=== PATIENT | female | born 1955 | race African-American/Black ===

== ENCOUNTER → 2016-10-28 | Outpatient (CLI) | payer OTHER ==
[~2016-10-28] MED LIST: B COMPLEX/FOLIC1 TAB PO; DIOVAN PO; ESTRADIOL1 EACH TD; FAMOTIDINE20 M1 PO; FUROSEMIDE40 MG PO; LOSARTAN POTASS50 MG PO; METFORMIN HCL500 M1 PO; OMEGA 3; POSTURE600 MG PO; PRAVASTATIN SOD20 MG PO; PREVACID PO; PREVASTATIN
--- NOTE | ~2016-10-28 | CR184 ---
[facility] A Service of [facility] RADIOLOGY TEXT RESULTS PATIENT: LIANET HOWE LOCATION: [facility] : 59 UNIT #: [id number] AGE: [address]: HUMAIRA POWERS MD SEX: F ORDER DR: [id number] [facility] [address] [place], [place] [address] [id number] O MR#: [id number] Acc #: [id number] NAME: LIANET OHWE. : 1955 SEX: F STUDY DATE/TIME: 10/28/2016 11:11 UNIT: [facility] ROOM: STUDY DESCRIPTION: CR Lumbar Spine Min 4 Views Attending Physician: Humaira Powers M.D. Referring Physician: Humaira Powers M.D. Ordering Physician: Humaira Powers M.D. Primary Care Physician: Humaira Powers M.D. MEDICAL IMAGING REPORT This report is preliminary unless electronic signature is present EXAM Lumbar spine series dated 10/28/[address] abdomen and pelvis with and without contrast dated 04/29/2010. No dedicated lumbar spine studies. HISTORY Low back pain for a month. High blood pressure and shortness of air. Lower extremity numbness and tingling. FINDINGS Five views of the lumbar spine were obtained. Frontal, lateral, bilateral oblique and lumbosacral spot lateral views were obtained. No acute displaced fracture or subluxation. No pars defects or destructive bony mass. Multilevel anterior endplate osteophytes and ossified anterior longitudinal ligaments are noted, worst at L3-4 followed by L1-2. Bilateral facet hypertrophic changes are noted at L5-S1 and probably L4-5. Pre and paravertebral soft tissues, pedicles, spinous process and visualized transverse processes are unremarkable. CT or MRI of the lumbar spine can be considered for further evaluation depending on the management needs. Dictated by... Juanita Mac M.D. THIS IS AN ELECTRONICALLY VERIFIED REPORT Juanita Mac M.D. at 10/29/2016 2:51 PM CPR/rnr [facility] A Service of [facility] RADIOLOGY TEXT RESULTS PATIENT: LIANET HOWE [id number] : 59 UNIT #: [id number] AGE: [address]: HUMAIRA POWERS MD SEX: F ORDER DR: TD: 10/29/2016 05:57 JOB #: [id number] MEDICAL IMAGING REPORT Page 1 of 1 COPY
== END | disposition home or self-care (01) ==
LOC: CRAD 10:25
DX: M54.5 Low back pain (principal)
CPT/HCPCS: 72110